=== PATIENT | female | born 1985 | race Caucasian/White ===

== ENCOUNTER 2018-07-01 22:20 | Emergency (ER) | payer MEDICARE, MEDICAID, SELFPAY ==
[2018-07-01 22:25] VITALS: BP 147/82; PULSE 85; RESP 16; TEMP 36.7; O2SAT 98
--- NOTE | 2018-07-01 22:38 | ED.GENADUL_ITS ---
Discharge Plan Disposition Patient Disposition: HOME Condition: Stable Discharge Details Chief Complaint: DentalOral Clinical Impression: Dental infection Primary Care Provider: Hailee Cano ED Provider: Behzad Lara Home Meds and New Rx's Prescriptions: New amoxicillin 500 mg tablet 500 mg PO TID Qty: 30 RF: 0 Discharge Instructions Additional Instructions: You are being treated for a dental infection Follow up with a dentist within 2 weeks If you have pain take 1000mg tylenol and 600mg ibuprofen every 6 hours for pain If you have severe worsening of pain, difficulty breathing or difficulty swallowing liquids return to the emergency department Medical Decision Making 33 yo female states she has had lower anterior teeth pain and some bleeding of the gums about 2 hors ago. HAs no throat pain, fevers, dyspnea or stridor. Midline uvula, normal oropharynx, no restricted neck movements and no pain over the hyoid. Does have some gingival hyperplasia without bleeding of gums and pain with percussion of the anterior lower teeth. Will treat as possible dental infection and advised f/u with dentist, return precautions given Differential Diagnosis dental infection, gum hyperplasia HPI General Mode of arrival: ambulatory . Date/Time Provider Initiated Documentation: 07/01/18 22:21 . Limitations to Documentation: no limitations . Information obtained by: patient . History of Present Illness 33 year old F presents to the emergency department with the chief complaint of tooth pain, described as mild, with intensity rated at 2. Quality is described as aching, and is localized to the mouth. Patient reports no radiation. Patient started experiencing this hour(s) (2) and it has been constant. No relieving factors improve symptom(s), No exacerbating factors reported . Patient notes no other symptoms.. Patient did receive the following treatments prior to arrival, none Related Data Home Medications Medication Instructions Recorded Confirmed amoxicillin 500 mg PO TID #30 tab 07/01/18 Previous Rx's Medication Instructions Recorded amoxicillin 500 mg PO TID #30 tab 07/01/18 General Stated Complaint: DentalOral KARO: 4 Review of Systems Review of Systems All systems reviewed & are unremarkable except as noted in HPI and below Constitutional Denies chills, Denies fever(s) and Denies weakness Cardiovascular Denies chest pain Gastrointestinal Denies nausea and Denies vomiting Genitourinary Denies dysuria Musculoskeletal Denies joint swelling Integumentary/Breasts Denies rash Neurologic Denies weakness Psychiatric Denies depression PFSH Social History Smoking/Tobacco Use Status: Current every day Exam Const General: no acute distress Orientation: alert HENMT Head: normal to inspection Ears: external ears normal General nose exam: external nose normal Mouth: moist mucous membranes Eyes General: appearance normal, both eyes and all related structures Neck Neck: normal visual inspection Resp Effort & Inspection: normal respiratory effort and able to speak in complete sentences Cardio Rate: regular rate Skin General skin exam: no rashes or lesions noted Neuro General: alert and oriented x3 Extrem General: normal to inspection Psych Mental Status: mental status grossly normal Course Vital Signs Temperature 36.7 C 07/01/18 22:25 Pulse 85 07/01/18 22:25 Respiratory Rate 16 07/01/18 22:25 Blood Pressure 147/82 H 07/01/18 22:25 Pulse Oximetry 98 07/01/18 22:25 Temperature 36.7 C 07/01/18 22:25 Temperature Source Skin 07/01/18 22:25 Pulse 85 07/01/18 22:25 Respiratory Rate 16 07/01/18 22:25 Blood Pressure 147/82 H 07/01/18 22:25 Blood Pressure Position Sitting 07/01/18 22:25 Pulse Oximetry 98 07/01/18 22:25 Oxygen Delivery Method Room Air 07/01/18 22:25 Oxygen Flow Rate 0 07/01/18 22:25
[2018-07-01] MEDS: Amoxicillin 500 MG CAP PO (22:56)
== END 2018-07-01 23:06 | disposition home or self-care (01) ==
LOC: ER 23:06
PROVIDERS: Emergency Provider Emergency Medicine; PCP Nurse Practitioner
DX: K04.7 Periapical abscess without sinus (principal); F17.210 Nicotine dependence, cigarettes, uncomplicated
CPT/HCPCS: 99283

== ENCOUNTER 2018-07-15 14:29 | Emergency (ER) | payer MEDICARE, MEDICAID, SELFPAY ==
[2018-07-15 14:32] VITALS: BP 149/78; PULSE 74; RESP 16; TEMP 36.3; O2SAT 98
--- NOTE | 2018-07-15 14:45 | W.ED.GENAD ---
Discharge Plan Disposition Patient Disposition: HOME Condition: Improving Discharge Details Chief Complaint: Sorethroat Clinical Impression: Exudative pharyngitis Primary Care Provider: Hailee Cano ED Provider: Jovany Shi Home Meds and New Rx's Prescriptions: New penicillin V potassium 500 mg tablet 500 mg PO TID 10 Days Qty: 30 RF: 0 Discontinued amoxicillin 500 mg tablet 500 mg PO TID Qty: 30 RF: 0 Discharge Instructions Instructions: Pharyngitis (ED) Additional Instructions: Small, frequent sips of fluids to maintain hydration. May use Tylenol 650-975 mg every 6 hours as needed for aches, fever. Return for worsening or any other acute concerns. Follow-up with regular doctor if not improving in 5 days time Medical Decision Making 33-year-old female with complaints of sore throat. She is afebrile and has normal oxygenation. Her exam is reassuring with the exception of exudative pharyngitis without evidence of abscess. I will treat her with a course of penicillin as her rapid strep test is positive. She understands homecare and return precautions. HPI General Mode of arrival: ambulatory. Date/Time Provider Initiated Documentation: 07/15/18 14:42. Limitations to Documentation: no limitations. History of Present Illness 33 year old F presents to the emergency department with the chief complaint of Sore throat worsening, described as moderate, Quality is described as aching, and is localized to the mouth. Patient reports no radiation. Patient started experiencing this day(s) and it has been intermittent. No relieving factors improve symptom(s), No exacerbating factors reported . Patient notes cough and fever/chills. Patient did receive the following treatments prior to arrival, none Related Data Home Medications Medication Instructions Recorded Confirmed penicillin V potassium 500 mg PO TID 10 Days #30 tab 07/15/18 Previous Rx's Medication Instructions Recorded penicillin V potassium 500 mg PO TID 10 Days #30 tab 07/15/18 Allergies Allergy/AdvReac Type Severity Reaction Status Date / Time No Known Allergies Allergy Unverified 07/01/18 22:57 General Stated Complaint: Sorethroat KARO: 4 Review of Systems Review of Systems 6 systems reviewed and otherwise - [facility] Social History Smoking/Tobacco Use Status: Current every day Exam Narrative Exam Narrative: GEN: awake, alert, oriented 3. Pleasant, well groomed, interactive. HEAD: Normocephalic, atraumatic ENT: Mucous membranes moist, oropharynx with erythematous, beefy red tonsillar pillars with overlying white exudate. The uvula is midline, no asymmetry. Tympanic membranes clear Yinka, External ear exam unremarkable EYES: PERRL, EOMI NECK: Full ROM, no KASIA, no menigismus CHEST/RESP: Nontender, clear to auscultation bilateral, no wheeze/rhonchi/rales CARDIOVASCULAR: RRR, no murmur, rub christiano. 2+ Rad pulse bilateral ABDOMEN: Soft, nontender, no mass. +Bowel sounds EXT: Full ROM, no edema, no rash Neuro: Grossly normal neurologic exam, conversant, interactive. Psych: Speech fluent, thoughts congruent, affect normal Course Vital Signs Temperature 36.3 C L 07/15/18 14:32 Pulse 74 07/15/18 14:32 Respiratory Rate 16 07/15/18 14:32 Blood Pressure 149/78 H 07/15/18 14:32 Pulse Oximetry 98 07/15/18 14:32 Temperature 36.3 C L 07/15/18 14:32 Temperature Source Skin 07/15/18 14:32 Pulse 74 07/15/18 14:32 Respiratory Rate 16 07/15/18 14:32 Respiratory Effort 07/15/18 14:36 Blood Pressure 149/78 H 07/15/18 14:32 Blood Pressure Position Sitting 07/15/18 14:32 Pulse Oximetry 98 07/15/18 14:32 Oxygen Delivery Method Room Air 07/15/18 14:32 Oxygen Flow Rate 0 07/15/18 14:32 Pain Level 4 07/15/18 14:32
== END 2018-07-15 15:06 | disposition home or self-care (01) ==
LOC: ER 14:59
PROVIDERS: Emergency Provider Emergency Medicine; PCP Nurse Practitioner
DX: J02.0 Streptococcal pharyngitis (principal); I10 Essential (primary) hypertension; F17.210 Nicotine dependence, cigarettes, uncomplicated
CPT/HCPCS: 87880; 99283

== ENCOUNTER 2018-12-14 00:20 | Outpatient (CLI) | payer MEDICARE, MEDICAID, SELFPAY ==
[2018-12-14 12:37] LABS: Abs Immature Grans 0.02 k/cumm (0.0-0.09); Absolute Basophil Count 0.02 k/cumm (0.0-0.2); Absolute Eosinophil Count 0.11 k/cumm (0.0-0.7); Absolute Lymphocyte Count 1.96 k/cumm (1.2-3.4); Absolute Monocyte Count 0.46 k/cumm (0.11-0.7); Absolute Neutrophil Count 4.65 k/cumm (1.2-6.7); Basophils % 0.3; Eosinophils % 1.5; HCT 40.4 % (36.0-46.0); HGB 13.1 g/dL (12.0-15.5); Immature Grans % 0.3; Lymphocytes % 27.1; Mean Corp. HGB Concentration 32.4 g/dL (32.0-36.0); Mean Corpuscular Hemoglobin 27.5 pg (27.0-33.0); Mean Corpuscular Volume 84.7 fL (80-95); Mean Platelet Volume 10.9 fL (8.0-11.0); Monocytes % 6.4; Neutrophils % 64.4; Platelet Count 192 x1000/uL (130-400); RBC 4.77 m/cumm (4.00-5.20); RBC Distribution Width 13.2 % (11.7-14.6); White Blood Cell Count 7.22 k/cumm (4.4-10.8)
[2018-12-14 13:26] LABS: ALT 36 U/L (12-78); AST 17 U/L (15-37); Albumin 3.6 g/dL (3.4-5.0); Alkaline Phosphatase 73 U/L (46-116); Anion Gap 10.6 mmol/L (3-11); BUN 13 mg/dL (7-18); Bilirubin, Total 0.6 mg/dL (0.2-1.0); CO2 27.4 mmol/L (21.0-32.0); Calcium 8.9 mg/dL (8.5-10.1); Chloride 105 mmol/L (98-107); Cholesterol 161 mg/dL (50-200); Glucose 96 mg/dL (70-100); HDL Cholesterol 40 mg/dL (40-60); LDL CHOLESTEROL 104 mg/dL (<100); Sodium 143 mmol/L (136-145); Total Protein 7.2 g/dL (6.4-8.2); Triglyceride 115 mg/dL (30-150)
--- NOTE | 2018-12-14 15:15 | DI.US_ITS ---
SYMPTOMS/DIAGNOSIS: AXILLARY LUMP X 2 MOS PALPATED BY PATIENT WHO SAYS IT HAS INCREASED IN SIZE, N63.1 RIGHT AXILLARY ULTRASOUND: Targeted sonographic ultrasound of the right axilla was performed. There is a well-circumscribed 2.5 cm lesion in the right axilla corresponding to the palpable abnormality. It is isoechoic to the surrounding fat soft tissues and is most suggestive of a lipoma. Minimal internal blood flow is detected. No posterior acoustic enhancement or shadowing is seen. IMPRESSION: A 2.5 cm well-circumscribed isoechoic subcutaneous mass, most suggestive of a lipoma. The findings were discussed with the patient on the date of the examination.
== END 2018-12-14 00:40 ==
PROVIDERS: PCP Nurse Practitioner; Visit Provider Nurse Practitioner
DX: N63.31 Unspecified lump in axillary tail of the right breast (principal); I10 Essential (primary) hypertension; E66.01 Morbid (severe) obesity due to excess calories; D17.21 Benign lipomatous neoplasm of skin and subcutaneous tissue of right arm
CPT/HCPCS: 36415; 76642; 80053; 80061; 83721; 85025

== ENCOUNTER → 2018-12-31 12:41 | Outpatient (BNVA) | payer MEDICARE, MEDICAID, SELFPAY | PROVIDERS: PCP Nurse Practitioner; Referring Provider Nurse Practitioner; Visit Provider Surgery | DX: D17.21 Benign lipomatous neoplasm of skin and subcutaneous tissue of right arm (principal); Z68.44 Body mass index [BMI] 60.0-69.9, adult | CPT/HCPCS: 99202; 99213 ==